=== PATIENT | female | born 1995 | race Caucasian/White ===

== ENCOUNTER → 2019-04-01 | Outpatient (CLI) | payer BC ==
[2019-04-01 12:03] LABS: Basophils # (A) 0.1 k/uL (0-0.2); Basophils % (A) 2 %; Eosinophils # (A) 0.1 k/uL (0-0.7); Eosinophils % (A) 1 %; HCT 42.6 % (34.0-46.0); HGB 14.2 gm/dL (11.4-16.0); Lymphocytes # (A) 1.8 k/uL (1.0-4.8); Lymphocytes % (A) 27 %; MCH 30.5 pg (25.0-35.0); MCHC 33.2 g/dL (31.0-37.0); MCV 91.7 fL (80.0-100.0); Mean Platelet Volume 8.3; Monocytes # (A) 0.4 k/uL (0-1.0); Monocytes % (A) 6 %; Neutrophils # (A) 4.1 k/uL (1.3-7.7); Neutrophils % (A) 62 %; Platelet Count 265 k/uL (150-450); RBC 4.64 m/uL (3.80-5.40); RDW 12.5 % (11.5-15.5); WBC 6.6 k/uL (3.8-10.6)
== END ==
LOC: LABPAT 10:48
PROVIDERS: ATTEND Obstetrics & Gynecology Obstetrics
DX: Z01.812 Encounter for preprocedural laboratory examination (principal); N84.0 Polyp of corpus uteri
CPT/HCPCS: 36415; 85025

== ENCOUNTER 2019-04-07 07:38 | Day surgery (SDC) | payer BC, MEDICARE ==
[2019-04-02 11:47] VITALS: BMI 26.4
[~2019-04-07 07:38] MED LIST: LACTATED RINGERS 1,000 ML IV SCH; LIDOCAINE 1% 20 ML VIAL (10MG/ML) FOR IV START INTRADERMA PRN; Pre Op ABX Message 1 EACH MISC MISCELLANE ONE
[2019-04-07] MEDS ORDERED: MIDAZOLAM 2 MG/2 ML VIAL ONE (09:06)
[2019-04-07] MEDS ORDERED: fentaNYL (PF) 50 MCG/ML 2 ML AMP ONE (09:06)
[2019-04-07] MEDS ORDERED: LIDOCAINE 1% INJ 10MG/ML (20 ML MDV) ONE (09:06)
[2019-04-07] MEDS ORDERED: KETOROLAC 30 MG/ML 1 ML VIAL ONE (09:06)
[2019-04-07] MEDS ORDERED: PROPOFOL 10 MG/ML 20 ML VIAL IV ONE (09:06)
[2019-04-07] MEDS ORDERED: ePHEDrine SULFATE/0.9% NACL/PF 50 MG/5 ML SYRINGE IV ONE (09:06)
[2019-04-07] MEDS ORDERED: DEXAMETHASONE SOD PHOS (MDV) 100 MG/10 ML VIAL ONE (09:06)
[2019-04-07] MEDS ORDERED: ONDANSETRON 4 MG/2 ML VIAL ONE (09:06)
[2019-04-07] MEDS ORDERED: SILVER NITRATE APPLICATOR 1 EACH STICK..EA. TOPICAL ONE (09:41)
--- NOTE | 2019-04-07 09:50 | P.OP ---
Date of Procedure: 04/07/19 Preoperative Diagnosis: Endometrial polyp, family planning Postoperative Diagnosis: Same Procedure(s) Performed: Hysteroscopy, dilation and curettage Anesthesia: MAC Surgeon: Jazmin Browning Estimated Blood Loss (ml): 5 IV fluids (ml): 600 Urine output (ml): 75 Pathology: other (Endometrial curettings) Condition: stable Disposition: PACU Indications for Procedure: Family planning, endometrial polyp visualized on ultrasound Operative Findings: Proliferative endometrium, endometrial polyp posterior wall Description of Procedure: Patient was seen in the preoperative area and multiple questions were answered, informed consent was obtained. Patient was taken to the operating suite where general anesthesia was obtained without difficulty by the anesthesia department. She was prepped and draped in the normal sterile fashion in the dorsal lithotomy position a red rubber catheter was used to drain the bladder of clear yellow urine. A weighted speculum was placed in the posterior vaginal vault the anterior lip the cervix is visualized and grasped with a single-tooth tenaculum. Endocervical canal was then dilated and hysteroscope was placed through the cervix and toward the endometrial cavity. A proliferative endometrium was noted up polyp was noted on the posterior uterine wall. Pictures were taken and the hysteroscope was removed. Sharp curettage was then performed gently and specimen was sent to pathology for analysis. At this time all instruments were removed from the patient's vaginal vault the single-tooth tenaculum was taken off of the anterior lip of the cervix and hemostasis was appreciated. All counts were correct 2 patient tolerated procedure well and was taken the recovery room awake in stable condition.
[2019-04-07 10:09] VITALS: TEMP 98.4
[2019-04-07] MEDS: fentaNYL (PF) 50 MCG/ML 2 ML AMP IVP ONE ×2 (10:29→10:33)
[2019-04-07 11:13] VITALS: BP 97/63; PULSE 67; RESP 18
== END 2019-04-07 11:35 | disposition home or self-care (01) ==
LOC: OR 07:38
PROVIDERS: ATTEND Obstetrics & Gynecology Obstetrics
DX: N84.0 Polyp of corpus uteri (principal); J45.909 Unspecified asthma, uncomplicated; H91.90 Unspecified hearing loss, unspecified ear; Z91.410 Personal history of adult physical and sexual abuse; Z98.890 Other specified postprocedural states; Z83.3 Family history of diabetes mellitus; Z82.0 Family history of epilepsy and other diseases of the nervous system
CPT/HCPCS: 81025; 88305; 58558; J2250; J2405; J2001; J3010; J1885; J1100; J2704